=== PATIENT | male | born 1965 | race Two or more races ===

== ENCOUNTER 2021-07-07 09:30 | Emergency (ER) | payer OTHER ==
[~2021-07-07] VITALS: Ht 162.6 cm; Wt 70.4 kg
[2021-07-07 09:33] VITALS: BP 152/100
--- NOTE | 2021-07-07 09:37 | PHYS DOC ---
Adult General [facility] HPI Patient is a 56 year old male who presents with left elbow pain. Patient was seen and treated at [facility] in [place] last week for elbow fracture. He was placed in splint and given some [place] to use for pain at home. He has orthopedic follow-up 48 hours from now. Comes to the ER primarily with pain that is out of control. He ran out of [place]. He reports they were controlling the pain symptoms until he ran out yesterday. Comes to the ER with posterior splint in place Review of Systems Review of Systems Constitutional: Denies fever or chills HENT: Denies Respiratory: Denies GI: Denies Musculoskeletal: As documented in HPI Integument: Denies rash or skin lesions Neurologic: Denies Endocrine: Denies All other systems were reviewed and found to be within normal limits, except as documented in this note. Allergies Allergies Allergies Coded Allergies Type Severity Reaction Last Updated Verified No Known Drug Allergies 07/07/21 No Physical Exam Physical Exam Constitutional: Well developed, well nourished, mild distress due to pain HENT: Normocephalic, atraumatic, bilateral external ears normal Neck: Normal range of motion Cardiovascular:Heart rate regular Lungs & Thorax: Bilateral breath sounds clear Skin: Warm, dry, no erythema, no rash Back: Normal ROM Extremities: Splint in place, distal to the splint, capillary refill is less than 2 seconds. He has 2+ radial pulses. Sensation light touch intact over the fingertips. After splint is removed, there is significant amount of ecchymosis and edema about the right elbow. Neurologic: Alert and oriented X 3 Psychologic: Affect normal Current Patient Data Vital Signs Vital Signs Date Time Temp Pulse Resp B/P (MAP) Pulse Ox O2 Delivery O2 Flow Rate FiO2 07/07/21 09:33 97.8 77 16 152/100 (117) 97 Room Air 97.8 EKG EKG [] Radiology/Procedures Radiology/Procedures [] Course & Med Decision Making Course & Med Decision Making Pertinent Labs and Imaging studies reviewed. (See chart for details) ED summary: Patient seen in the emergency department primarily for medication refill. On arrival, the a splint that was placed was very dirty and the Juan wrap was rolled back. His initial examination did not reveal any evidence for neurovascular compromise or a splint that was too tight. The splint was removed in the emergency department and a new posterior splint was applied. Patient states this did feel better. He had run out of pain medications and he is given [place] in the ER. He is given the same to use at home. He he already had scheduled follow-up with Ortho in 2 days and stable for discharge from the ER. Post splint assessment was completed. The splint was placed by nursing staff. Post splint assessment reveals appropriately placed posterior splint and distal neurovascular to be intact with brisk capillary refill and sensation light touch intact. Dragon Disclaimer Dragon Disclaimer This electronic medical record was generated, in whole or in part, using a voice recognition dictation system. Departure Departure Impression: Primary Impression: Fracture of right elbow Disposition: HOME / SELF CARE / HOMELESS Condition: GOOD Patient Instructions: Pain Medicine Instructions ALO WRIGHT DO July 07, 2021 09:37
[2021-07-07] MEDS ORDERED: HYDROcodone/APAP 7.5/325MG 1 TAB TABLET PO ONE (10:15)
[2021-07-07] MEDS ORDERED: HYDROcodone/APAP 5/325MG 1 TAB TABLET PO ONE (10:15)
[2021-07-07] MEDS ORDERED: IBUP-1060 PO (10:21)
[2021-07-07] MEDS ORDERED: HYDR-2765 PO (10:21)
[2021-07-07] MEDS ORDERED: HYDR-3070 PO (10:51)
[2021-07-07] MEDS ORDERED: HYDR-2759 PO (12:09)
[2021-07-10] MEDS ORDERED: OXYC1TAB15 PO (13:14)
[2021-07-10] MEDS ORDERED: CYAN500T7 PO (13:14)
== END 2021-07-07 11:14 | disposition home or self-care (01) ==
LOC: ER 09:30
DX: S42.401A Unspecified fracture of lower end of right humerus, initial encounter for closed fracture (principal); W11.XXXA Fall on and from ladder, initial encounter; Y93.89 Activity, other specified; Y92.69 Other specified industrial and construction area as the place of occurrence of the external cause; Y99.0 Civilian activity done for income or pay
CPT/HCPCS: 29105; 99283

== ENCOUNTER 2021-07-13 09:55 | Day surgery (SDC) | payer OTHER ==
[~2021-07-13] VITALS: Ht 162.6 cm; Wt 70.0 kg
[~2021-07-13 09:55] MED LIST: CYAN500T7 PO; HYDR-2759 PO; HYDR-2765 PO; HYDR-3070 PO; HYDROmorphone 2 MG/ML INJ. IVP PRN; IBUP-1060 PO; IV RINGERS,LACTATED 1000ML 1,000 ML IV SCH; OXYC1TAB15 PO; PROCHLORPERAZINE 10 MG/2 ML VIAL. IVP PRN; fentaNYL PF VIAL 100 MCG/2 ML VIAL IVP PRN
[2021-07-13 10:19] VITALS: BP 130/84
[2021-07-13] MEDS ORDERED: DEXAMETHASONE SOD PHOS 4 MG/ML VIAL ONE (10:25)
[2021-07-13] MEDS ORDERED: PROPOFOL 10 MG/ML (20ML) VIAL. IV ONE (10:25)
[2021-07-13] MEDS ORDERED: LIDOCAINE 2% PF 5 ML VIAL. ONE (10:25)
[2021-07-13] MEDS ORDERED: fentaNYL PF VIAL 100 MCG/2 ML VIAL ONE ×2 (10:25→12:48)
[2021-07-13] MEDS ORDERED: ONDANSETRON PF 4 MG/2 ML VIAL. ONE (10:25)
[2021-07-13] MEDS ORDERED: OXYC5TAB88 PO (10:58)
[2021-07-13] MEDS ORDERED: ONDA4TAB12 PO (10:58)
[2021-07-13] MEDS ORDERED: GABA600T7 PO (11:00)
--- NOTE | 2021-07-13 11:02 | DISCH ---
DISCHARGE INSTRUCTIONS Condition on Discharge Condition on Discharge: Stable Activity After Discharge Activity Instructions for Disc: Activity as tolerated, Avoid exertion Other activity instructions: Nonweightbearing right upper extremity Bathing Instructions: Shower-keep dressing dry Lifting Instructions after Dis: No heavy lifting, No pulling or pushing, Do not lift >10 pounds Exercise Instruction after Dis: Walk 10 min, 3 x per day Driving Instructions after Dis: Do not drive today Weight Bearing Status after Di: Non weight bearing (Right upper extremity), Other, see below (Encourage gentle passive range of motion of fingers to right upper extremity to help reduce postoperative stiffness) Diet after Discharge Diet after Discharge: Regular Wound Incision Care Wound/Incision Care: Ice to area for comfort, Keep wound/cast CDI, Keep wound elevated, Do not change dressing Contacting the DRSami after DC Call your doctor for: If your condition worsens Follow-Up Follow up with: Orthopedic clinic call to schedule appointment [phone] Treatment/Equipment after DC Adaptive Equipment Issued: None CHIARA ESPINOZA July 13, 2021 11:02
[2021-07-13] MEDS ORDERED: BUPIVACAINE-EPI 0.25% 30 ML VIAL KIT. ONE (11:49)
[2021-07-13] MEDS ORDERED: MIDAZOLAM HCL/PF 2 MG/2 ML VIAL. ONE (11:51)
[2021-07-13] MEDS ORDERED: KETAMINE HCL IN NACL, ISO-OSM 50 MG/5 ML SYRINGE ONE (12:55)
--- NOTE | 2021-07-13 13:14 | PDOC4 ---
OPERATIVE NOTE Date: Date: July 13, 2021 Pre-Op Diagnosis: 1. 56-year-old male right olecranon process fracture Post-Op Diagnosis: 1. 56-year-old male right olecranon process fracture 2. Status post ORIF right olecranon process Procedure Performed: 1. ORIF right olecranon process Surgeon: Damaso Anesthesia Type: General Blood Loss: 10 cc Specimans Obtained: None Complications: Patient tolerated the procedure well without any apparent intraoperative complications. Operative Note: See dictation CHIARA ESPINOZA July 13, 2021 13:14
--- NOTE | 2021-07-13 13:32 | OP ---
DATE OF SURGERY: 07/13/2021 PREOPERATIVE DIAGNOSIS: Displaced fracture, right proximal humerus. POSTOPERATIVE DIAGNOSIS: Displaced fracture, right proximal humerus. PROCEDURE: ORIF of right proximal ulna. SURGEON: Abdulaziz Petit Jr, DO GLASSWORKER: Micheal Travis. ANESTHESIA: General. COMPLICATIONS: None. ESTIMATED BLOOD LOSS: 10 mL DESCRIPTION OF PROCEDURE: The patient was taken to the operative suite, given a general anesthetic. Right upper extremity was then prepped and draped in a sterile fashion. Incision was made through skin and subcutaneous tissues after tourniquet was inflated to 250 mmHg, where it remained throughout the case and the incision was taken down to the ulna as well as the ulnar fragment. This also extended proximally along the area of the triceps tendon, which was also identified. Small amount of release was done on the medial and lateral aspects of the ulna very carefully right directly toward the bone. The fragment was then extended and removed of clot. This was then held in a reduced position after it was replaced and held with a clamp. A guide pin was then placed across this was noted to be in good position and orientation of both AP and lateral projections. Therefore, the ulnar plate was then approximated. One screw was placed in the distal fragment. One was the long compression screw, which was the home run screw placed. This was noted to be in good position in both AP and lateral projections and the distal holes were then filled in the ulna. These were all done with locking screws except for the most distal screw, which was a nonlocking screw. This was done under standard AO technique. This was noted to be completely reduced as far as the articular surface. Therefore, this was thoroughly irrigated. Superficial tissues and skin was reapproximated. Sterile dressing was applied. Tourniquet was deflated with good return of pulses and capillary refill. The patient was then taken from the operative bed to the postoperative bed, taken to the PACU in stable condition. SHAHRZAD DR: Kai TID: [id number]
[2021-07-13] MEDS: MORPHINE SULFATE 2 MG/ML INJ. IVP PRN ×2 (13:52→14:04)
[2021-07-13 14:26] VITALS: BP 147/89
[2021-07-13] MEDS ORDERED: oxyCODONE IR 5 MG TABLET ONE (14:26)
[2021-07-13] MEDS ORDERED: oxyCODONE IR 5 MG TABLET PO ONE (14:30)
--- NOTE | 2021-07-13 15:13 | RAD ---
EXAM: Right elbow, 2 views. HISTORY: Fracture fixation. COMPARISON: 07/04/2021 FINDINGS: 2 views of the right elbow are obtained. There is internal fixation of a displaced olecrano n fracture with a plate and multiple screws. There is a joint effusion and there is surrounding soft tissue swelling due to recent surgery. There is marginal spurring involving the radial head and neck. There is a 1.6 cm osseous excrescence involving the distal humeral metaphysis due to a healed fractu re. IMPRESSION: 1. Internal fixation of an olecranon fracture. 2. Healed distal humeral fracture and mild right elbow osteoarthritis. 3. Right elbow effusion. Electronically signed by: Jazlyn Morejon MD (07/13/2021 3:10 PM) [id number]
== END 2021-07-13 14:51 | disposition home or self-care (01) ==
LOC: SURG 09:55
PROVIDERS: ATTEND Orthopaedic Surgery
DX: S52.021A Displaced fracture of olecranon process without intraarticular extension of right ulna, initial encounter for closed fracture (principal); Z79.899 Other long term (current) drug therapy; Z98.890 Other specified postprocedural states; X58.XXXA Exposure to other specified factors, initial encounter; Y93.89 Activity, other specified; Y92.89 Other specified places as the place of occurrence of the external cause; Y99.8 Other external cause status
CPT/HCPCS: 73070; 76000; A4565; A4930; A6253; A6402; A6449; A6450; C1713; C1769; J0690; J1100; J2250; J2270; J2405; J2704; J3010